=== PATIENT | female | born 1990 | race American Indian/Alaskan Native ===

== ENCOUNTER 2019-04-07 11:20 | Emergency (ER) | payer MEDICAID ==
--- NOTE | 2019-04-07 11:31 | Emergency Department Report ---
Blank Doc - Documentation Documentation: 28-year-old female that presents with pelvic pain and vaginal bleedingx4 days. Denies any n/v/d. This initial assessment/diagnostic orders/clinical plan/treatment(s) is/are subject to change based on patient's health status, clinical progression and re- assessment by fellow clinical providers in the ED. Further treatment and workup at subsequent clinical providers discretion. Patient/guardians urged not to elope from the ED as their condition may be serious if not clinically assessed and managed. Initial orders include: 1- Patient sent to [facility] for further evaluation and treatment 2- UA
[2019-04-07 11:40] VITALS: BP 140/80
[2019-04-07 13:27] LABS: RBC,Urine > 182.0 /HPF (0.0-6.0); WBC,Urine > 182.0 /HPF (0.0-6.0)
[2019-04-07 13:30] LABS: Bilirubin,Urine NEG (Negative); Blood,Urine LG (Negative); Color,Urine Red (Yellow); HCG Qualitative,Urine Negative (Negative); Urobilinogen,Urine < 2.0 mg/dL (<2.0)
--- NOTE | 2019-04-07 14:50 | Emergency Department Report ---
ED Female HPI - General Chief complaint: Abdominal Pain Stated complaint: ABD PAIN Time Seen by Provider: 04/07/19 11:30 Source: patient Mode of arrival: Ambulatory Limitations: No Limitations - History of Present Illness Initial comments: This is a 28-year-old -[place] female who presents to the emergency room with heavy vaginal bleeding for 2 weeks. Patient reports 2 episodes after getting a tubal ligation last year. She reports periods are heavier than usual and last for long periods times. He is currently not on control.. [facility] [place] to ago, A0. She reports abdominal pain as cramping intensity that is intermittent. Patient states she was seen at my [facility] for similar symptoms in December and told everything was okay. She denies dizziness, vaginal discharge, urinary frequency, urgency, dysuria. MD Complaint: vaginal bleeding, pelvic pain Onset/Timin -: week(s) Location: suprapubic Radiation: non-radiating Severity: mild Severity scale (0 -10): 3 Quality: cramping Consistency: intermittent Improves with: none Worsens with: menstrual period Are you Now?: No Last Menstrual Period: 03/23/19 EDC: 12/28/19 Associated Symptoms: denies other symptoms - Related Data Sexually active: Yes : 4 Para: 4 A: 0 Previous Rx's Medication Instructions Recorded Last Taken Type Phenazopyridine [Pyridium] 100 mg PO TID #6 tab 04/07/19 Unknown Rx Sulfamethoxazole/Trimethoprim 1 each PO BID #6 tablet 04/07/19 Unknown Rx [Bactrim DS TAB] medroxyPROGESTERone ACETATE 10 mg PO QDAY #10 tablet 04/07/19 Unknown Rx [Provera] ED Review of Systems ROS: Stated complaint: ABD PAIN Other details as noted in HPI Constitutional: denies: chills, fever Respiratory: denies: cough, shortness of breath, wheezing Cardiovascular: denies: chest pain, palpitations Gastrointestinal: denies: abdominal pain (cramping pain), nausea, diarrhea Genitourinary: abnormal menses. denies: urgency, dysuria, discharge Musculoskeletal: denies: back pain, joint swelling, arthralgia Skin: denies: rash, lesions Neurological: denies: headache, weakness, paresthesias Psychiatric: denies: anxiety, depression ED Past Medical Hx - Past Medical History Previous Medical History?: No - Surgical History Past Surgical History?: No - Social History Smoking Status: Never Smoker Substance Use Type: None - Medications Home Medications: Home Medications Medication Instructions Recorded Confirmed Last Taken Type Phenazopyridine [Pyridium] 100 mg PO TID #6 tab 04/07/19 Unknown Rx Sulfamethoxazole/Trimethoprim 1 each PO BID #6 tablet 04/07/19 Unknown Rx [Bactrim DS TAB] medroxyPROGESTERone ACETATE 10 mg PO QDAY #10 tablet 04/07/19 Unknown Rx [Provera] ED Physical Exam - General Limitations: No Limitations General appearance: alert, in no apparent distress, obese (morbidly) - Respiratory Respiratory exam: Present: normal lung sounds bilaterally. Absent: respiratory distress - Cardiovascular Cardiovascular Exam: Present: regular rate, normal rhythm. Absent: systolic murmur, diastolic murmur, rubs, gallop - GI/Abdominal GI/Abdominal exam: Present: soft, normal bowel sounds. Absent: distended, tenderness, guarding, rebound, rigid - Back Exam Back exam: Absent: CVA tenderness (R), CVA tenderness (L) - Neurological Exam Neurological exam: Present: alert, oriented X3, normal gait - Psychiatric Psychiatric exam: Present: normal affect, normal mood - Skin Skin exam: Present: warm, dry, intact, normal color. Absent: rash ED Course Vital Signs 04/07/19 11:37 Temperature 97.7 F Pulse Rate 97 H Respiratory 18 Rate Blood Pressure 140/80 O2 Sat by Pulse 99 Oximetry ED Medical Decision Making - Lab Data Lab Results 04/07/19 Range/Units 12:44 Urine Color Red (Yellow) Urine Turbidity Cloudy (Clear) Urine pH 6.0 (5.0-7.0) Ur Specific [place] 1.010 (1.003-1.030) Urine Protein 100 mg/dl (Negative) mg/dL Urine Glucose (UA) 50 (Negative) mg/dL Urine Ketones Neg (Negative) mg/dL Urine Blood Lg (Negative) Urine Nitrite Pos (Negative) Urine Bilirubin Neg (Negative) Urine Urobilinogen < 2.0 (<2.0) mg/dL Ur Leukocyte Esterase Tr (Negative) Urine WBC (Auto) > 182.0 H (0.0-6.0) /HPF Urine RBC (Auto) > 182.0 (0.0-6.0) /HPF Urine HCG, Qual Negative (Negative) - Medical Decision Making Patient was examined by me. Patient is nontoxic appearing and stable. Vitals are normal. Obtained urinalysis and urine test. Urinalysis positive for an acute cystitis. Patient is nontender to abdomen on exam. At this time further testing is not indicated. Patient will be treated for acute cystitis. Start Bactrim DS. She will also be treated for dysfunctional uterine bleeding. Start Provera. Referral to [facility]. Patient informed of results and ER plan. Instructed to take Tylenol or ibuprofen for pain. Follow up with PCP or return to the ER with worsening symptoms. Patient discharged home in stable condition. Critical care attestation.: If time is entered above; I have spent that time in minutes in the direct care of this critically ill patient, excluding procedure time. ED Disposition Clinical Impression: Dysfunctional uterine bleeding, Abdominal cramping Menorrhagia Qualifiers: Menorrahagia type: with irregular cycle Qualified Code(s): N92.1 - Excessive and frequent menstruation with irregular cycle Disposition: TO HOME OR SELFCARE Is pt being admited?: No Condition: Stable Instructions: Abdominal Pain (ED), Menorrhagia (ED), Dysfunctional Uterine Bleeding (ED) Additional Instructions: Follow-up with a slate cutter operator for further evaluation of menorrhagia. Return to the emergency room if worsening abdominal pain. Prescriptions: Sulfamethoxazole/Trimethoprim [Bactrim DS TAB] 1 each PO BID #6 tablet medroxyPROGESTERone ACETATE [Provera] 10 mg PO QDAY #10 tablet Phenazopyridine [Pyridium] 100 mg PO TID #6 tab Referrals: [facility] [Provider Group] - 3-5 Days [facility] [Provider Group] - 3-5 Days [facility] [Provider Group] - 3-5 Days Forms: Work/School Release Form(ED) Time of Disposition: 15:03
== END 2019-04-07 15:15 | disposition home or self-care (01) ==
LOC: ED 11:20
DX: N93.8 Other specified abnormal uterine and vaginal bleeding (principal); N92.1 Excessive and frequent menstruation with irregular cycle; Z79.899 Other long term (current) drug therapy
CPT/HCPCS: 81001; 81025; 99283